=== PATIENT | female | born 1945 | race Caucasian/White ===

== ENCOUNTER 2021-08-03 19:52 | Emergency (ER) | payer MEDICARE ==
[~2021-08-03] VITALS: Ht 170.2 cm; Wt 70.0 kg
[2021-08-03 20:00] VITALS: TEMP 97.5
[2021-08-03 21:14] VITALS: BP 128/59; PULSE 61
== END 2021-08-03 21:14 | disposition home or self-care (01) ==
LOC: COL.ER 19:52
DX: T83.091A Other mechanical complication of indwelling urethral catheter, initial encounter (principal); Z87.440 Personal history of urinary (tract) infections